=== PATIENT | female | born 1955 | race Asian ===

== ENCOUNTER 2017-06-30 10:41 | Day surgery (SDC) | payer OTHER ==
[~2017-06-30] VITALS: Ht 157.5 cm; Wt 64.1 kg
[2017-06-30] VITALS (15 sets, daily range): BP systolic 104–141; BP diastolic 55–85; PULSE 52–80; RESP 11–23; Ht 157.5 cm; Wt 64.1 kg
[~2017-06-30 10:41] MED LIST: CEFAZOLIN 1 GM/50 ML (PMX) 50 ML IVPB SCH; SOD CHLORIDE 0.9% 1,000 ML IV SCH
[2017-06-30] MEDS ORDERED: LOSA50TA6 PO (11:09)
[2017-06-30] MEDS ORDERED: PRAV40TA76 PO (11:10)
[2017-06-30] MEDS ORDERED: AMLO5TAB4 PO (11:10)
[2017-06-30] MEDS ORDERED: BUPIVACAINE 0.25% (MPF) 30 ML INJ ONE (11:56)
[2017-06-30] MEDS ORDERED: LIDOCAINE 1%/EPI 30 ML INJ ONE (11:57)
[2017-06-30] MEDS ORDERED: NEOSTIGMINE 3 MG/3 ML SYRINGE ONE (12:00)
[2017-06-30] MEDS ORDERED: ROCURONIUM 50 MG INJ ONE (12:00)
[2017-06-30] MEDS ORDERED: ONDANSETRON 4 MG INJ ONE (12:00)
[2017-06-30] MEDS ORDERED: METOCLOPRAMIDE 10 MG INJ ONE (12:00)
[2017-06-30] MEDS ORDERED: PROPOFOL 20 ML ONE (12:00)
[2017-06-30] MEDS ORDERED: FENTAnyl 50 MCG/ML VIAL ONE (12:00)
[2017-06-30] MEDS ORDERED: MIDAZOLAM 1 MG/ML 2 ML INJ ONE (12:01)
[2017-06-30] MEDS ORDERED: GLYCOPYRROLATE 1 MG INJ ONE (12:32)
[2017-06-30] MEDS ORDERED: CEFAZOLIN 1 GM INJ ONE (12:32)
[2017-06-30] MEDS ORDERED: OXYCODONE/ACETAMINOPHEN (5/325) TAB PO PRN ×2 (13:00)
[2017-06-30] MEDS ORDERED: ONDANSETRON 4 MG INJ IV PRN (13:00)
[2017-06-30] MEDS ORDERED: MEPERIDINE 25 MG INJ IV PRN (13:00)
[2017-06-30] MEDS ORDERED: DIPHENHYDRAMINE 50 MG INJ IV PRN (13:00)
[2017-06-30] MEDS ORDERED: HYDROmorphONE (0.2 MG/ML) 10ML SYG IV PRN ×3 (13:00)
--- NOTE | 2017-06-30 13:11 | OPR ---
Date/Time of Note Date/Time of Note DATE: 06/30/17 TIME: 13:05 Operative Report Procedure Date: Jun 30, 2017 Preoperative Diagnosis severe hemorrhoids Postoperative Diagnosis same Operation/Procedure Performed 1. proctoplasty for prolapse of mucosal membrane cpt code 58535 2. ligation of internal hemorrohids multiple procedures cpt code 22164 3. rigid proctoscopy 4. therapeutic injection of subcutaneous local anesthesia Surgeon see signature line Transitions Rn Care Coordinator none Anesthesia Type: general Estimated Blood Loss: 10 - 50 ml's Transfusion none Specimen none Grafts/Implants none Complications none Pt Condition Post Procedure: stable Indications This is a 61-year-old female with chronic large external and internal hemorrhoids. She requests surgical repair. Risks alternatives benefits and percent were discussed with the patient. Patient expresses understanding and consents to the operation. Procedure Description Patient taken to the OR and prepped and draped in usual sterile fashion. Surgical timeout was performed. IV antibiotics given. Rigid proctoscopy was performed. There is no evidence of any masses or lesions. Prep was fair. Attention is then paid to the internal hemorrhoidal arteries. Using the THD device internal hemorrhoidal arteries are suture ligated with a [id number] 0 Vicryl suture in multiple regions circumferentially. This is performed under ultrasound guidance. The proctoplasty was then performed by running 0 Vicryl from proximal to distal down to the dentate line. This was then tied down. This is also performed in multiple region. There is good hemostasis. Therapeutic subcutaneous local anesthesia was injected throughout the anal mucosa. Dry dressings were applied. Daiana DRISCOLL Jun 30, 2017 13:11
[2017-06-30] MEDS ORDERED: HYDROCODONE/APAP (5/325) TAB PO ONE (13:30)
[2017-06-30] MEDS ORDERED: BISACODYL (EC) 5 MG TAB PO ONE (13:30)
== END 2017-06-30 15:05 | disposition home or self-care (01) ==
LOC: SDS 10:41
PROVIDERS: ATTEND Surgery
DX: K64.4 Residual hemorrhoidal skin tags (principal); K64.8 Other hemorrhoids; I10 Essential (primary) hypertension; E78.5 Hyperlipidemia, unspecified
CPT/HCPCS: 45505; 46946; J0690; J1170; J2250; J2405; J2765; J3010; J2710